=== PATIENT | male | born 1955 | race Caucasian/White ===

== ENCOUNTER 2022-11-07 06:19 | Inpatient (IN) | payer MEDICARE, OTHER ==
[2022-11-07] VITALS (22 sets, daily range): BP systolic 0–141; BP diastolic 0–96
[~2022-11-07] VITALS: Ht 185.4 cm; Wt 120.2 kg
[~2022-11-07 06:19] MED LIST: CALCIUM CHLORIDE 1 GM/10 ML DISP.SYRIN IVP ONE; EPINEPHRINE 1:10,000 1 MG/10 ML DISP.SYRIN ONE; ETOMIDATE 20 MG/10 ML VIAL ONE; SODIUM BICARBONATE 8.4% 50 MEQ/50 ML DISP.SYRIN IV ONE; SUCCINYLCHOLINE CHLORIDE 200 MG/10 ML VIAL ONE
--- NOTE | 2022-11-07 06:41 | NUR ---
unable to reconcile medications. patient does not recall medication
[2022-11-07 07:11] LABS: HEMATOCRIT 33.2 % (36.7-47.1); MEAN CORPUSCULAR HEMOGLOBIN 32.6 uug (23.8-33.4); MEAN CORPUSCULAR VOLUME 101.3 fL (73.0-96.2); PLATELET COUNT (AUTO) 95 K/uL (152-348)
--- NOTE | 2022-11-07 07:11 | NUR ---
Gave Report to Javier OLIVAS.
[2022-11-07 07:15] LABS: *BILIRUBIN,URIN NEGATIVE (NEGATIVE); *BLOOD, URINE 2+ (NEGATIVE); *CLARITY,URINE SLIGHTLY CLOUDY (CLEAR); *COLOR,URINE YELLOW (YELLOW); *KETONES,URINE NEGATIVE (NEGATIVE); *UROBILINOGEN,URINE 0.2 E.U./dl (NORMAL); LEUKOCYTE ESTERASE ,URINE NEGATIVE (NEGATIVE); NITRITE, URINE NEGATIVE (NEGATIVE); UGLUCOSE NEGATIVE (NEGATIVE)
[2022-11-07] MEDS ORDERED: CEFTRIAXONE /D5W 50ML IVPB **ER PYXIS IV ONE (07:15)
[2022-11-07] MEDS ORDERED: IV NORMAL SALINE 1000 ML BAG IV ONE ×2 (07:15→09:15)
[2022-11-07] MEDS ORDERED: CEFTRIAXONE 1 G in IV DEXTROSE 5% 50 ML IV ONE (07:15)
[2022-11-07] MEDS ORDERED: AZITHROMYCIN IV 500 MG in IV DEXTROSE 5% 250 ML IV ONE (07:15)
[2022-11-07] MEDS ORDERED: AZITHROMYCIN 500MG/ D5W 250ML IVPB **ER PYXIS ONLY IV ONE (07:16)
[2022-11-07 07:37] LABS: CARBON DIOXIDE 18 mmol/L (21-32); CHLORIDE 102 mmol/L (98-107); CREATININE 2.7 mg/dL (0.6-1.3); GLUCOSE 159 mg/dL (74-106); POTASSIUM 5.7 mmol/L (3.5-5.1); UREA NITROGEN, BLOOD 50 mg/dL (7-18)
[2022-11-07 07:43] LABS: ALANINE AMINOTRANSFERASE 28 U/L (16-63); ALKALINE PHOSPHATASE 96 U/L (50-136); ASPARTATE AMINOTRANSFERASE 18 U/L (15-37); BILIRUBIN,DIRECT 0.2 mg/dL (0.0-0.2); BILIRUBIN,TOTAL 0.6 mg/dL (0.2-1.0); TOTAL PROTEIN, SERUM 6.8 g/dL (6.4-8.2)
[2022-11-07] MEDS ORDERED: DULA1.5P SQ ×2 (07:47→17:36)
[2022-11-07] MEDS ORDERED: NORT50CA PO (07:47)
[2022-11-07] MEDS ORDERED: TAMS-3 PO (07:47)
[2022-11-07] MEDS ORDERED: MORP15TA7 PO (07:47)
[2022-11-07] MEDS ORDERED: OXYC30TA2 PO (07:47)
[2022-11-07] MEDS ORDERED: NALO4SPR (07:47)
[2022-11-07] MEDS ORDERED: PANT40TA49 PO (07:47)
[2022-11-07] MEDS ORDERED: LENA10CA PO (07:48)
[2022-11-07] MEDS ORDERED: GABA-532 PO (07:48)
[2022-11-07] MEDS ORDERED: FURO20TA90 (07:48)
[2022-11-07] MEDS ORDERED: DEXA4TAB PO (07:48)
[2022-11-07] MEDS ORDERED: AMITIZA (07:48)
--- NOTE | 2022-11-07 08:04 | NUR ---
PT IS IN BED #1A. PT's AT THE BEDSIDE. CONTINUE TO MONITOR THE PT.
[2022-11-07] MEDS ORDERED: REMEDY ESSENTIAL ZINC PASTE 113 GM TP PRN (08:45)
[2022-11-07] MEDS ORDERED: MAGNESIUM HYDROXIDE 30 ML LIQUID UDC PO PRN (08:45)
[2022-11-07] MEDS ORDERED: ZOLPIDEM 5 MG TABLET PO PRN (08:45)
[2022-11-07] MEDS ORDERED: VANCOMYCIN IV 1,000 MG in IV DEXTROSE 5% 250 ML IV ONE ×2 (08:45→11:00)
[2022-11-07] MEDS ORDERED: HYDROCODONE/APAP 10-325 MG TABLET PO PRN (08:45)
[2022-11-07] MEDS ORDERED: IV NS 1000 ML 1,000 ML IV PRN (08:45)
[2022-11-07] MEDS ORDERED: ACETAMINOPHEN 325 MG TABLET PO PRN (08:45)
[2022-11-07] MEDS ORDERED: ONDANSETRON 4 MG/2 ML VIAL IV PRN (08:45)
[2022-11-07] MEDS ORDERED: HYDROMORPHONE 1 MG/1 ML DISP.SYRIN IV PRN (08:45)
[2022-11-07] MEDS ORDERED: VANCOMYCIN IV 200 ML ONE ×2 (08:47→11:40)
[2022-11-07] MEDS ORDERED: ENOXAPARIN SODIUM 60 MG/0.6 ML DISP.SYRIN SQ STA (08:54)
[2022-11-07] MEDS ORDERED: PANTOPRAZOLE SODIUM 40 MG VIAL IV SCH (09:00)
[2022-11-07] MEDS ORDERED: PANTOPRAZOLE SODIUM 40 MG VIAL ONE (09:05)
[2022-11-07] MEDS ORDERED: ENOXAPARIN SODIUM 80 MG/0.8 ML DISP.SYRIN SQ ONE (09:06)
[2022-11-07] MEDS ORDERED: ENOXAPARIN SODIUM 40 MG/0.4 ML DISP.SYRIN SQ ONE (09:06)
[2022-11-07] MEDS ORDERED: PIPERACILLIN/TAZOBACTAM/D5W 50 ML IV ONE (10:09)
[2022-11-07] MEDS: PIPERACILLIN SODIUM/TAZOBACTAM 3.375 G in IV DEXTROSE 5% 100 ML IV SCH ×2 (10:17→18:59)
--- NOTE | 2022-11-07 10:31 | NUR ---
DR SINGH EVALUATED THE PT AND TALKED TO PT'S .
--- NOTE | 2022-11-07 10:46 | NUR ---
REPORT WAS GIVEN TO CCU DEISY MCKENNA.
[2022-11-07 10:59] LABS: RBC,URINE 20-50 /HPF (0-3)
[2022-11-07 11:00] LABS: WBC,URINE NONE SEEN /HPF (0-3)
[2022-11-07 11:01] LABS: BACTERIA,URINE FEW /HPF (NONE SEEN); SQUAMOUS EPITHELIAL CELL,UR FEW /HPF (NONE SEEN)
--- NOTE | 2022-11-07 11:13 | NUR ---
Pt has temp of 102.4 and tylenol was refused by stating that with patient's medication Revlimid that he is not able to take tylenol. I will implement cooling measures with cold packs and notify Dr Bergman
[2022-11-07 11:38] LABS: BAND % (MANUAL) 1 % (0-10); LYMPHOCYTES % (MANUAL) 92 % (20-40); MONOCYTES % (MANUAL) 1 % (2-10); MYELOCYTES % 1 % (0-0); NEUTROPHILS % (MANUAL) 5 % (42-75)
[2022-11-07] MEDS ORDERED: HYDROMORPHONE 1 MG/1 ML DISP.SYRIN ONE (12:19)
[2022-11-07] MEDS ORDERED: PIPERACILLIN SODIUM/TAZOBACTAM 3.375 G in IV DEXTROSE 5% 50 ML IV SCH (14:00)
[2022-11-07 16:12] LABS: THYROID STIMULATING HORMONE 7.58 mIU/mL (0.358-3.740)
[2022-11-07] MEDS: NOREPINEPHRINE BITARTRATE 8 MG in IV NORMAL SALINE 242 ML IV PRN ×4 (16:21→23:14)
[2022-11-07 16:23] LABS: *RHEUMATOID FACTOR SCREEN NEGATIVE (NEGATIVE)
[2022-11-07] MEDS ORDERED: DOSING BY PHARMACY-MD TO SPECIFY MED/ROUTE XX PRN (17:00)
[2022-11-07] MEDS ORDERED: ASPI-1101 PO (17:29)
[2022-11-07] MEDS ORDERED: LUBI8CAP PO (17:29)
[2022-11-07] MEDS ORDERED: OXYC15TA2 PO (17:33)
[2022-11-07] MEDS ORDERED: GABA300C PO (17:39)
[2022-11-07] MEDS ORDERED: PAMIDRONATE DISODIUM 30 MG in IV NORMAL SALINE 500 ML IV ONE (18:00)
[2022-11-07] MEDS ORDERED: ALLO300T2 PO (18:27)
[2022-11-07] MEDS ORDERED: FOLI1TAB94 PO (18:27)
[2022-11-07] MEDS ORDERED: SACU1TAB PO (18:27)
[2022-11-07] MEDS ORDERED: GRAN1TAB PO (18:27)
[2022-11-07] MEDS ORDERED: EVOL140P3 SQ (18:27)
[2022-11-07] MEDS ORDERED: BACL20TA PO (18:27)
[2022-11-07] MEDS ORDERED: CLON0.5T4 PO (18:27)
--- NOTE | 2022-11-07 19:30 | NUR ---
Patient ETT / Vent by Dr Baker
--- NOTE | 2022-11-07 19:30 | NUR ---
Patient intubated with 7.5 ETT @approx 25cm at the [facility] ER Dr given settings of AC 20, 500, +5, 100%. Stat ABG done, and post ABG to follow 1 hr later.
[2022-11-07 20:30] LABS: ABG BASE EXCESS -15.5 mmol/L; ABG HCO3 13.7 mmol/L; ABG PCO2 46.2 mmHg (35.0-45.0); ABG PO2 37.2 mmHg (75.0-100.0); ABG SITE RIGHT RADIAL; ABG TOTAL HEMOGLOBIN 10.8 G/dL (13.5-18.0); COHb 0.7 % (0.5-1.5); MetHb 0.1 % (0.0-1.5); O2Hb 55.8 % (94.0-97.0); VENT MODE VENT - A/C; VT, ABG 500 mL
[2022-11-07] MEDS ORDERED: HEPARIN SODIUM,PORCINE 5,000 UNITS/ML VIAL SQ SCH (21:00)
--- NOTE | 2022-11-07 21:24 | NUR ---
Received call from [facility], spoke with Dustin, requested face sheet and clinicals faxed to , states at this time at capacity, but will call as soon as bed is available.
[2022-11-07] MEDS ORDERED: HEPARIN SODIUM,PORCINE 5,000 UNITS/ML VIAL ONE (21:57)
[2022-11-07] MEDS ORDERED: HYDROCORTISONE SOD SUCCINATE 100 MG/2 ML VIAL IV ONE (21:57)
[2022-11-07] MEDS ORDERED: HYDROCORTISONE SOD SUCCINATE 100 MG/2 ML VIAL IV SCH (22:00)
[2022-11-07 22:05] LABS: ABG BASE EXCESS -15.3 mmol/L; ABG HCO3 11.9 mmol/L; ABG PCO2 32.9 mmHg (35.0-45.0); ABG PH 7.177 (7.350-7.450); ABG PO2 66.6 mmHg (75.0-100.0); ABG SITE RIGHT BRACHIAL; ABG TOTAL HEMOGLOBIN 11.3 G/dL (13.5-18.0); COHb 0.3 % (0.5-1.5); MetHb 0.4 % (0.0-1.5); VENT MODE VENT - A/C; VT, ABG 500 mL
[2022-11-07] MEDS ORDERED: PHENYTOIN SODIUM 100 MG/2 ML VIAL IV ONE (22:22)
[2022-11-07] MEDS ORDERED: PHENYLEPHRINE IV 100 MG in IV NORMAL SALINE 240 ML IV PRN (22:30)
[2022-11-07] MEDS ORDERED: VASOPRESSIN 20 UNIT/ML VIAL ONE (22:44)
[2022-11-07] MEDS ORDERED: VASOPRESSIN 40 UNIT in IV NORMAL SALINE 40 ML IV PRN (22:45)
--- NOTE | 2022-11-07 23:15 | NUR ---
See Code Blue Sheet. Patient pronounced 23:15. at bedside & ordered the Code Blue team to stop the Code Blue. was give information to call [facility] [employer] [employer] with [employer] information.
--- NOTE | 2022-11-08 00:40 | NUR ---
[facility] physicians answering service notified of patients .
--- NOTE | 2022-11-08 01:10 | NUR ---
Patient removed to [facility].
[2022-11-08] MEDS ORDERED: ALLOPURINOL 100 MG TABLET PO SCH (09:00)
[2022-11-12 11:07] LABS: A/G RATIO 1.3 (0.7-1.7); ALBUMIN 2.8 g/dL (2.9-4.4); ALPHA-1-GLOBULIN 0.3 g/dL (0.0-0.4); ALPHA-2-GLOBULIN 0.9 g/dL (0.4-1.0); BETA GLOBULIN 0.6 g/dL (0.7-1.3); GAMMA GLOBULIN 0.5 g/dL (0.4-1.8); GLOBULIN, TOTAL 2.2 g/dL (2.2-3.9); M-SPIKE 0.1 g/dL (Not Observed)
== END 2022-11-07 23:55 | DRG 871 ==
LOC: ER 06:27 → TELE3 08:37 → TRANSITION 09:14
PROVIDERS: ADMIT Nurse Practitioner Acute Care; ATTEND Nurse Practitioner Acute Care
PROC: 0BH17EZ Insertion of Endotracheal Airway into Trachea, Via Natural or Artificial Opening (ICD-10-PCS; principal; 2022-11-07)
PROC: 5A1935Z Respiratory Ventilation, Less than 24 Consecutive Hours (ICD-10-PCS; 2022-11-07)
PROC: 5A12012 Performance of Cardiac Output, Single, Manual (ICD-10-PCS; 2022-11-07)
DX: A41.9 Sepsis, unspecified organism (principal); G92.8 Other toxic encephalopathy; N17.0 Acute kidney failure with tubular necrosis; R65.21 Severe sepsis with septic shock; N39.0 Urinary tract infection, site not specified; C91.10 Chronic lymphocytic leukemia of B-cell type not having achieved remission; E87.20 Acidosis, unspecified; J98.11 Atelectasis; D63.0 Anemia in neoplastic disease; E66.9 Obesity, unspecified; Z68.35 Body mass index [BMI] 35.0-35.9, adult; Z20.822 Contact with and (suspected) exposure to COVID-19; D69.6 Thrombocytopenia, unspecified; N40.0 Benign prostatic hyperplasia without lower urinary tract symptoms; K21.9 Gastro-esophageal reflux disease without esophagitis; E83.52 Hypercalcemia; F32.A Depression, unspecified; R79.1 Abnormal coagulation profile; E87.5 Hyperkalemia; D53.9 Nutritional anemia, unspecified; T40.601A Poisoning by unspecified narcotics, accidental (unintentional), initial encounter; Y92.039 Unspecified place in apartment as the place of occurrence of the external cause
CPT/HCPCS: 36415; 36600; 70030-TC; 70450; 71045; 78580; 82533; 82747; 82784; 83550; 83605; 83615; 83930; 83935; 84155; 84165; 84443; 84484; 85014; 85025; 85730; 86038; 86140; 86334; 86430; 86706; 86803; 87040; 87340; 87806; 92950; 93005; 94002; A4663; A9540; C9113; G0378; J0171; J0330; J0456; J0696; J1165; J1170; J1644; J1650; J1720; J2430; J2543; J3370; J3490; J7040; J7050